=== PATIENT | female | born 1955 | race African-American/Black ===

== ENCOUNTER 2022-10-07 04:12 | Emergency (ER) | payer OTHER ==
[2022-10-07] MEDS ORDERED: Furosemide 40 MG/4 ML VIAL ONE (05:00)
[2022-10-07 05:12] LABS: #Basophils 0.1 thou/uL (0.0-0.2); #Eosinphils 0.4 thou/uL (0.0-0.7); #Lymphocytes 3.3 thou/uL (1.20-3.40); #Monocytes 0.8 thou/uL (0.11-0.59); #Neutrophils 8.4 thou/uL (1.40-6.50); %Basophils 1.1 % (0.0-1.0); %Eosinophils 3.3 % (0.0-10.0); %Lymphocytes 25.1 % (21.0-51.0); %Monocytes 5.8 % (0.0-10.0); %Neutrophils 64.7 % (42.0-75.0); Hematocrit 26.6 % (36.0-47.0); Hemoglobin 8.7 g/dL (12.0-16.0); Mean Corpuscular HGB CONC 32.6 g/dL (32.0-36.0); Mean Corpuscular Hemoglobin 27.5 pg (27.0-31.0); Mean Corpuscular Volume 84.4 fl (78.0-98.0); Mean Platelet Volume 11.6 fL (7.4-10.4); Platelet Count 89 10x3/uL (130-400); RBC Distribution Width 18.4 % (11.5-14.5); Red Blood Cell (RBC) Count 3.16 mill/uL (4.20-5.40)
[2022-10-07 05:19] LABS: INR-International Normal Ratio 1.5; Prothrombin Time 18.7 sec (12.0-14.7)
[2022-10-07 05:22] LABS: D-Dimer Test 0.7 *mcg/mL (0.27-0.43)
[2022-10-07 05:32] LABS: ALT (SGPT) 15 U/L (8-55); AST (SGOT) 21 U/L (5-34); Albumin 2.8 g/dL (3.4-4.8); Alkaline Phosphatase 257 U/L (40-110); Anion Gap 15 mmol/L (10-20); BUN (Urea Nitrogen) 42 mg/dL (9.8-20.1); Bilirubin, Total 1.6 mg/dL (0.2-1.2); CK (CPK) 21 U/L (29-168); Calc. Creatinine Clearance 0 mL/min (70-130); Calcium 8.7 mg/dL (7.8-10.44); Carbon Dioxide 21 mmol/L (23-31); Chloride 108 mmol/L (98-107); Estimated GFR 22; Globulin 4.8 g/dL (2.4-3.5); Glucose 124 mg/dL (80-115); Magnesium 1.2 mg/dL (1.6-2.6); Protein, Total 7.6 g/dL (5.8-8.1); Sodium 140 mmol/L (136-145); Troponin I 0.023 ng/mL (< 0.028); Uric Acid 15.8 mg/dL (2.6-6.0)
[2022-10-07] MEDS ORDERED: Magnesium 2 GM/50 ML BAG (IN WATER) ONE (06:05)
[2022-10-07 06:19] LABS: Bilirubin Negative (Negative); Blood, Urine Negative (Negative); Clarity Clear (Clear); Glucose, Urine (Dipstick) Negative (Negative); Ketone, Urine Negative (Negative); Leukocyte Negative (Negative); Nitrite Negative (Negative); Protein, Urine (Dipstick) Negative (Neg-Trace); Specific Gravity, Urine 1.015 (1.005-1.030); Urobilinogen 0.2 mg/dL (Less than 2)
[2022-10-07 06:36] LABS: Bacteria/HPF Rare-Few HPF (None Seen); CAUTI Indications for Culture Dysuria,urgency,freq; RBC/HPF 0-3 HPF (0-3); WBC/HPF 0-3 HPF (0-3)
[2022-10-07 06:38] LABS: Urine Culture Reflex No No
== END 2022-10-07 08:29 | disposition short-term general hospital (02) ==
LOC: MADERS 04:12
DX: E11.22 Type 2 diabetes mellitus with diabetic chronic kidney disease (principal); I12.9 Hypertensive chronic kidney disease with stage 1 through stage 4 chronic kidney disease, or unspecified chronic kidney disease; N18.4 Chronic kidney disease, stage 4 (severe); K70.30 Alcoholic cirrhosis of liver without ascites; E79.0 Hyperuricemia without signs of inflammatory arthritis and tophaceous disease; R77.0 Abnormality of albumin; E83.42 Hypomagnesemia; K21.9 Gastro-esophageal reflux disease without esophagitis; F17.210 Nicotine dependence, cigarettes, uncomplicated; Z79.4 Long term (current) use of insulin; Z79.899 Other long term (current) drug therapy
CPT/HCPCS: 36415; 80053; 81001; 82140; 82550; 83605; 83735; 83880; 84484; 84550; 85025; 85379; 85610; 93005; 96365; 96375; J1940; J3475

== ENCOUNTER 2022-10-24 14:57 | Emergency (ER) | payer OTHER ==
[2022-10-24 16:03] LABS: INR-International Normal Ratio 1.5; Prothrombin Time 18.5 sec (12.0-14.7)
[2022-10-24 16:04] LABS: PTT 41.6 sec (22.9-36.1)
[2022-10-24 16:16] LABS: #Basophils 0.2 thou/uL (0.0-0.2); #Eosinphils 0.3 thou/uL (0.0-0.7); #Lymphocytes 3.7 thou/uL (1.20-3.40); #Monocytes 0.6 thou/uL (0.11-0.59); %Basophils 1.6 % (0.0-1.0); %Lymphocytes 33.9 % (21.0-51.0); %Monocytes 5.6 % (0.0-10.0); %Neutrophils 55.9 % (42.0-75.0); Hemoglobin 9.5 g/dL (12.0-16.0); Lipase 129 U/L (8-78); Magnesium 1.4 mg/dL (1.6-2.6); Mean Corpuscular HGB CONC 30.8 g/dL (32.0-36.0); Mean Corpuscular Hemoglobin 26.5 pg (27.0-31.0); Mean Platelet Volume 10.9 fL (7.4-10.4); Platelet Count 95 10x3/uL (130-400); RBC Distribution Width 18.3 % (11.5-14.5); Troponin I 0.038 ng/mL (< 0.028); White Blood Cell (WBC) Count 10.8 10x3/uL (4.8-10.8)
[2022-10-24 16:17] LABS: Hypochromia SLIGHT = 6-15 cells (100X) (0-5/hpf); Platelet Adequacy Comment Appears Decreased
[2022-10-24 16:31] LABS: ALT (SGPT) 19 U/L (8-55); AST (SGOT) 34 U/L (5-34); Albumin 2.8 g/dL (3.4-4.8); Alkaline Phosphatase 274 U/L (40-110); Anion Gap 14 mmol/L (10-20); BUN (Urea Nitrogen) 56 mg/dL (9.8-20.1); Bilirubin, Total 1.8 mg/dL (0.2-1.2); Calc. Creatinine Clearance 0 mL/min (70-130); Calcium 9.3 mg/dL (7.8-10.44); Carbon Dioxide 30 mmol/L (23-31); Chloride 104 mmol/L (98-107); Estimated GFR 17; Globulin 5.7 g/dL (2.4-3.5); Glucose 127 mg/dL (80-115); Potassium 3.9 mmol/L (3.5-5.1); Protein, Total 8.5 g/dL (5.8-8.1); Sodium 144 mmol/L (136-145)
[2022-10-24] MEDS ORDERED: Sodium Chloride 0.9% 1,000 ML ONE (17:10)
[2022-10-24 19:27] LABS: Bilirubin Negative (Negative); Blood, Urine Negative (Negative); Clarity Clear (Clear); Glucose, Urine (Dipstick) Negative (Negative); Ketone, Urine Negative (Negative); Leukocyte Negative (Negative); Nitrite Negative (Negative); Protein, Urine (Dipstick) Negative (Neg-Trace); Specific Gravity, Urine 1.015 (1.005-1.030); Urobilinogen 0.2 mg/dL (Less than 2)
[2022-10-24 19:29] LABS: Bacteria/HPF Rare-Few HPF (None Seen); CAUTI Indications for Culture Alt mental st,lethar; RBC/HPF 0-3 HPF (0-3); Squamous Epithelial 0-3 HPF (0-3); WBC/HPF 0-3 HPF (0-3)
[2022-10-24 19:30] LABS: Urine Culture Reflex No No
[2022-10-24 19:35] LABS: Amphetamine Not Detected (NotDetected); Barbiturates Screen Not Detected (NotDetected); Benzodiazepine Screen Not Detected (NotDetected); Cocaine Metabolite Screen Not Detected (NotDetected); Methadone Not Detected (NotDetected); Methamphetamine Not Detected (NotDetected); Opiate Screen Not Detected (NotDetected); Oxycodone Screen Not Detected (NotDetected); Phencyclidine (PCP) Not Detected (NotDetected); THC/Cannabinoid Screen Not Detected (NotDetected); Tricyclic Screen Not Detected (NotDetected)
[2022-10-24 22:27] LABS: Troponin I 0.043 ng/mL (< 0.028)
[2022-10-24] MEDS ORDERED: Aspirin 325 MG TAB ONE (22:59)
== END 2022-10-25 00:56 | disposition short-term general hospital (02) ==
LOC: MADERS 14:57
DX: R41.82 Altered mental status, unspecified (principal); N17.9 Acute kidney failure, unspecified; K74.60 Unspecified cirrhosis of liver; K21.9 Gastro-esophageal reflux disease without esophagitis; E11.9 Type 2 diabetes mellitus without complications; I10 Essential (primary) hypertension; F17.210 Nicotine dependence, cigarettes, uncomplicated; Z79.4 Long term (current) use of insulin; Z79.899 Other long term (current) drug therapy
CPT/HCPCS: 36416; 70450; 71045; 71250; 74177; 80053; 80306; 81001; 82140; 83605; 83690; 83735; 84484; 85025; 85610; 85730; 87040; 93005; 94760; 96360; 96361; 36415-59; J7050

== ENCOUNTER 2023-01-06 19:09 | Emergency (ER) | payer OTHER ==
[2023-01-06] MEDS ORDERED: Methocarbamol 500 MG TAB ONE (19:55)
[2023-01-06] MEDS ORDERED: HYDROcodone/Acetaminophen 5/325 mg Tablet ONE (20:51)
[2023-01-06] MEDS ORDERED: Diazepam 5 MG TAB ONE (22:00)
== END 2023-01-07 00:59 ==
LOC: MADERS 19:09
DX: M62.830 Muscle spasm of back (principal); E10.9 Type 1 diabetes mellitus without complications; I10 Essential (primary) hypertension; F17.210 Nicotine dependence, cigarettes, uncomplicated
CPT/HCPCS: 99284

== ENCOUNTER 2023-03-13 18:35 | Emergency (ER) | payer OTHER ==
[2023-03-13 19:55] LABS: #Basophils 0.2 thou/uL (0.0-0.2); #Eosinphils 0.2 thou/uL (0.0-0.7); #Monocytes 0.7 thou/uL (0.11-0.59); #Neutrophils 4.9 thou/uL (1.40-6.50); %Basophils 1.8 % (0.0-1.0); %Eosinophils 2.1 % (0.0-10.0); %Lymphocytes 33.1 % (21.0-51.0); %Monocytes 8.3 % (0.0-10.0); %Neutrophils 54.6 % (42.0-75.0); Hematocrit 25.7 % (36.0-47.0); Mean Corpuscular Hemoglobin 27.1 pg (27.0-31.0); Mean Corpuscular Volume 87.3 fl (78.0-98.0); Mean Platelet Volume 13.8 fL (7.4-10.4); Platelet Count 99 10x3/uL (130-400); RBC Distribution Width 17.5 % (11.5-14.5); Red Blood Cell (RBC) Count 2.95 mill/uL (4.20-5.40); White Blood Cell (WBC) Count 8.9 10x3/uL (4.8-10.8)
[2023-03-13 20:02] LABS: INR-International Normal Ratio 1.5
[2023-03-13 20:03] LABS: PTT 48.5 sec (22.9-36.1)
[2023-03-13 20:39] LABS: SARS-CoV-2 NAA Rapid Test Not Detected (NotDetected)
[2023-03-13] MEDS ORDERED: Lactulose 20 GM (30 mL) UDCUP PO SCH (20:45)
[2023-03-13 20:48] LABS: ALT (SGPT) 16 U/L (8-55); AST (SGOT) 29 U/L (5-34); Albumin 2.8 g/dL (3.4-4.8); Alkaline Phosphatase 236 U/L (40-110); Anion Gap 15 mmol/L (10-20); BUN (Urea Nitrogen) 63 mg/dL (9.8-20.1); Bilirubin, Total 1.6 mg/dL (0.2-1.2); Calc. Creatinine Clearance 0 mL/min (70-130); Calcium 8.5 mg/dL (7.8-10.44); Carbon Dioxide 19 mmol/L (23-31); Chloride 108 mmol/L (98-107); Estimated GFR 10; Globulin 4.2 g/dL (2.4-3.5); Glucose 99 mg/dL (80-115); Magnesium 1.9 mg/dL (1.6-2.6); Potassium 4.5 mmol/L (3.5-5.1); Sodium 137 mmol/L (136-145)
[2023-03-13] MEDS ORDERED: Sodium Chloride 0.9% 500 ML ONE (22:44)
[2023-03-14] MEDS ORDERED: Sodium Chloride 0.9% 1,000 ML ONE (01:23)
== END 2023-03-14 03:07 | disposition short-term general hospital (02) ==
LOC: MADERS 18:35
DX: K76.82 Hepatic encephalopathy (principal); N17.9 Acute kidney failure, unspecified; I45.81 Long QT syndrome; E11.9 Type 2 diabetes mellitus without complications; I10 Essential (primary) hypertension; K21.9 Gastro-esophageal reflux disease without esophagitis; J45.909 Unspecified asthma, uncomplicated; I82.409 Acute embolism and thrombosis of unspecified deep veins of unspecified lower extremity; F17.210 Nicotine dependence, cigarettes, uncomplicated; Z79.01 Long term (current) use of anticoagulants; Z79.4 Long term (current) use of insulin; Z79.899 Other long term (current) drug therapy
CPT/HCPCS: 70450; 80053; 82140; 83605; 83735; 84443; 85025; 85610; 85730; 87804; 93005; 94760; 96360; J7030; J7050; U0002

== ENCOUNTER 2023-07-05 15:27 | Emergency (ER) | payer MEDICARE ==
[2023-07-05 16:26] LABS: Anisocytosis SLIGHT = 6-15 cells (100X) (0-5/hpf); Hematocrit 29.8 % (36.0-47.0); Hemoglobin 8.7 g/dL (12.0-16.0); Hypochromia MODERATE=16-30 cells (100X) (0-5/hpf); Lymphocytes 9 % (21-51); MDiff Complete? YES; Manual Diff?? YES; Mean Corpuscular HGB CONC 29.2 g/dL (32.0-36.0); Mean Corpuscular Hemoglobin 27.7 pg (27.0-31.0); Mean Corpuscular Volume 94.7 fl (78.0-98.0); Mean Platelet Volume 7.6 fL (7.4-10.4); Metamyelocyte 1 % (0-0); Monocytes 1 % (0-10); Neutrophil 77 % (42-75); Platelet Adequacy Comment Appears Decreased; Platelet Count 73 10x3/uL (130-400); Polychromasia SLIGHT = 2-3 cells (100X) (0-2/hpf); RBC Distribution Width 18.6 % (11.5-14.5); Reactive Lymphocytes 12 % (0-10); Red Blood Cell (RBC) Count 3.15 mill/uL (4.20-5.40); Reflex for Review?? NO; Target Cells SLIGHT = 2-5 cells (100X) (0-1/hpf); White Blood Cell (WBC) Count 12.2 10x3/uL (4.8-10.8)
[2023-07-05 16:31] LABS: ALT (SGPT) 10 U/L (8-55); AST (SGOT) 27 U/L (5-34); Albumin 2.6 g/dL (3.4-4.8); Alkaline Phosphatase 248 U/L (40-110); Anion Gap 18 mmol/L (10-20); BUN (Urea Nitrogen) 38 mg/dL (9.8-20.1); Bilirubin, Total 2.6 mg/dL (0.2-1.2); Calc. Creatinine Clearance 0 mL/min (70-130); Calcium 7.6 mg/dL (7.8-10.44); Carbon Dioxide 24 mmol/L (23-31); Chloride 97 mmol/L (98-107); Estimated GFR 6; Globulin 4.5 g/dL (2.4-3.5); Glucose 238 mg/dL (80-115); Magnesium 1.8 mg/dL (1.6-2.6); Potassium 3.8 mmol/L (3.5-5.1); Protein, Total 7.1 g/dL (5.8-8.1); Sodium 135 mmol/L (136-145)
[2023-07-05] MEDS ORDERED: Calcium Carbonate 500 MG ChewTAB ONE (16:37)
== END 2023-07-05 17:22 ==
LOC: MADERS 15:27
DX: E83.51 Hypocalcemia (principal); R25.2 Cramp and spasm; E11.9 Type 2 diabetes mellitus without complications; I10 Essential (primary) hypertension; F17.210 Nicotine dependence, cigarettes, uncomplicated; Z79.899 Other long term (current) drug therapy
CPT/HCPCS: 36415; 80053; 83735; 85025; 93005

== ENCOUNTER 2023-08-22 07:53 | Emergency (ER) | payer MEDICARE ==
[2023-08-22 08:53] LABS: #Basophils 0.1 thou/uL (0.0-0.2); #Eosinphils 0.2 thou/uL (0.0-0.7); #Monocytes 0.5 thou/uL (0.11-0.59); #Neutrophils 4.1 thou/uL (1.40-6.50); %Basophils 1.9 % (0.0-1.0); %Eosinophils 2.6 % (0.0-10.0); %Lymphocytes 37.8 % (21.0-51.0); %Monocytes 6.1 % (0.0-10.0); %Neutrophils 51.6 % (42.0-75.0); Hematocrit 31.5 % (36.0-47.0); Hemoglobin 9.2 g/dL (12.0-16.0); Mean Corpuscular HGB CONC 29.2 g/dL (32.0-36.0); Mean Corpuscular Hemoglobin 26.9 pg (27.0-31.0); Mean Corpuscular Volume 92.2 fl (78.0-98.0); Mean Platelet Volume 9.8 fL (7.4-10.4); Platelet Count 52 10x3/uL (130-400); RBC Distribution Width 18.4 % (11.5-14.5); Red Blood Cell (RBC) Count 3.42 mill/uL (4.20-5.40); White Blood Cell (WBC) Count 7.9 10x3/uL (4.8-10.8)
[2023-08-22 09:08] LABS: Platelet Adequacy Comment Appears Decreased
[2023-08-22 09:10] LABS: Anion Gap 19 mmol/L (10-20); BUN (Urea Nitrogen) 48 mg/dL (9.8-20.1); Calc. Creatinine Clearance 0 mL/min (70-130); Calcium 7.1 mg/dL (7.8-10.44); Carbon Dioxide 24 mmol/L (23-31); Chloride 99 mmol/L (98-107); Estimated GFR 8; Glucose 131 mg/dL (80-115); Potassium 4.9 mmol/L (3.5-5.1); Sodium 137 mmol/L (136-145)
[2023-08-22 09:16] LABS: INR-International Normal Ratio 1.6; Prothrombin Time 19.2 sec (12.0-14.7)
[2023-08-22 09:17] LABS: PTT 44.1 sec (22.9-36.1)
[2023-08-22 09:18] LABS: Troponin I 0.018 ng/mL (< 0.028)
[2023-08-22] MEDS ORDERED: Calcium Chloride 1 GM/10 ML Abboject SYRINGE ONE (09:48)
[2023-08-22] MEDS ORDERED: Sodium Chloride 0.9% 100 ML ONE ×2 (09:49→13:36)
[2023-08-22 12:59] LABS: Bilirubin Negative (Negative); Blood, Urine Negative (Negative); Glucose, Urine (Dipstick) Negative (Negative); Ketone, Urine Negative (Negative); Leukocyte Small (Negative); Nitrite Negative (Negative); Protein, Urine (Dipstick) Negative (Neg-Trace); Specific Gravity, Urine 1.015 (1.005-1.030); pH, Urine 7.5 (5.0-9.0)
[2023-08-22 13:00] LABS: Clarity Hazy (Clear)
[2023-08-22 13:07] LABS: CAUTI Indications for Culture Pelvic or flank pain; RBC/HPF 0-3 HPF (0-3); Yeast-Budding Rare HPF (None Seen)
[2023-08-22 13:09] LABS: Bacteria/HPF 2+ HPF (None Seen); Urine Culture Reflex No No
[2023-08-22] MEDS ORDERED: Fluconazole 100 MG TAB ONE (13:36)
[2023-08-22] MEDS ORDERED: cefTRIAXone (ROCEPHIN) 1 GM VIAL ONE (13:36)
== END 2023-08-22 18:22 | disposition short-term general hospital (02) ==
LOC: MADERS 07:53
DX: E86.0 Dehydration (principal); E83.51 Hypocalcemia; E11.9 Type 2 diabetes mellitus without complications; I10 Essential (primary) hypertension; F17.210 Nicotine dependence, cigarettes, uncomplicated; Z79.4 Long term (current) use of insulin
CPT/HCPCS: 36415; 70450; 71045; 80048; 81001; 83880; 84484; 85610; 85730; 93005; 96365; 96375; J0696; J3490

== ENCOUNTER 2023-09-05 07:35 | Emergency (ER) | payer MEDICARE, MEDICAID ==
[2023-09-05 08:24] LABS: ALT (SGPT) 16 U/L (8-55); AST (SGOT) 39 U/L (5-34); Albumin 2.3 g/dL (3.4-4.8); Alkaline Phosphatase 308 U/L (40-110); Anion Gap 19 mmol/L (10-20); BUN (Urea Nitrogen) 50 mg/dL (9.8-20.1); Bilirubin, Total 1.9 mg/dL (0.2-1.2); Calc. Creatinine Clearance 0 mL/min (70-130); Calcium 8.2 mg/dL (7.8-10.44); Carbon Dioxide 23 mmol/L (23-31); Chloride 98 mmol/L (98-107); Estimated GFR 7; Globulin 4.8 g/dL (2.4-3.5); Glucose 169 mg/dL (80-115); Potassium 4.9 mmol/L (3.5-5.1); Protein, Total 7.1 g/dL (5.8-8.1); Sodium 135 mmol/L (136-145)
[2023-09-05 08:29] LABS: Hematocrit 30.6 % (36.0-47.0); Hemoglobin 9.1 g/dL (12.0-16.0); Mean Corpuscular HGB CONC 29.6 g/dL (32.0-36.0); Mean Corpuscular Hemoglobin 27.5 pg (27.0-31.0); Mean Corpuscular Volume 92.7 fl (78.0-98.0); Mean Platelet Volume 8.2 fL (7.4-10.4); Platelet Count 59 10x3/uL (130-400); RBC Distribution Width 18.8 % (11.5-14.5); White Blood Cell (WBC) Count 9.4 10x3/uL (4.8-10.8)
[2023-09-05 08:45] LABS: Band 2 % (5-11); Eosinophils 4 % (0-10); Lymphocytes 35 % (21-51); MDiff Complete? YES; Monocytes 2 % (0-10); Neutrophil 57 % (42-75)
[2023-09-05 08:46] LABS: Anisocytosis SLIGHT = 6-15 cells (100X) (0-5/hpf); Platelet Adequacy Comment Appears Decreased
== END 2023-09-05 10:21 ==
LOC: MADERS 07:35
DX: G93.40 Encephalopathy, unspecified (principal); K70.9 Alcoholic liver disease, unspecified; E11.22 Type 2 diabetes mellitus with diabetic chronic kidney disease; N18.6 End stage renal disease; I12.0 Hypertensive chronic kidney disease with stage 5 chronic kidney disease or end stage renal disease; E11.42 Type 2 diabetes mellitus with diabetic polyneuropathy; F17.210 Nicotine dependence, cigarettes, uncomplicated
CPT/HCPCS: 80053; 82140; 85025; 93005

== ENCOUNTER 2023-12-14 17:28 | Emergency (ER) | payer MEDICARE, MEDICAID ==
[2023-12-14 18:15] LABS: #Basophils 0.1 thou/uL (0.0-0.2); #Eosinophils 0.3 thou/uL (0.0-0.7); #Lymphocytes 1.7 thou/uL (1.20-3.40); #Monocytes 0.5 thou/uL (0.11-0.59); #Neutrophils 4.1 thou/uL (1.40-6.50); %Basophils 1.7 % (0.0-1.0); %Eosinophils 4.6 % (0.0-10.0); %Lymphocytes 25.9 % (21.0-51.0); %Monocytes 7.1 % (0.0-10.0); %Neutrophils 60.7 % (42.0-75.0); Anisocytosis SLIGHT = 6-15 cells (100X) (0-5/hpf); Hematocrit 22.9 % (36.0-47.0); Hemoglobin 6.9 g/dL (12.0-16.0); Hypochromia SLIGHT = 6-15 cells (100X) (0-5/hpf); MDiff Complete? YES; Mean Corpuscular HGB CONC 30.2 g/dL (32.0-36.0); Mean Corpuscular Hemoglobin 28.9 pg (27.0-31.0); Mean Corpuscular Volume 95.6 fl (78.0-98.0); Mean Platelet Volume 11.2 fL (7.4-10.4); Platelet Adequacy Comment Appears Decreased; Platelet Count 42 10x3/uL (130-400); RBC Distribution Width 23.5 % (11.5-14.5); Red Blood Cell (RBC) Count 2.39 mill/uL (4.20-5.40); Target Cells SLIGHT = 2-5 cells (100X) (0-1/hpf); White Blood Cell (WBC) Count 6.7 10x3/uL (4.8-10.8)
[2023-12-14 18:20] LABS: ALT (SGPT) 18 U/L (8-55); AST (SGOT) 36 U/L (5-34); Albumin 2.2 g/dL (3.4-4.8); Alkaline Phosphatase 218 U/L (40-110); Anion Gap 18 mmol/L (10-20); BUN (Urea Nitrogen) 16 mg/dL (9.8-20.1); Bilirubin, Total 2.2 mg/dL (0.2-1.2); Calc. Creatinine Clearance 0 mL/min (70-130); Calcium 8.1 mg/dL (7.8-10.44); Carbon Dioxide 25 mmol/L (23-31); Chloride 95 mmol/L (98-107); Estimated GFR 13; Globulin 4.6 g/dL (2.4-3.5); Glucose 315 mg/dL (80-115); Potassium 3.1 mmol/L (3.5-5.1); Protein, Total 6.8 g/dL (5.8-8.1); Sodium 135 mmol/L (136-145)
[2023-12-14 18:21] LABS: Troponin I 0.027 ng/mL (< 0.028)
[2023-12-14] MEDS ORDERED: Sodium Chloride 0.9% 250 ML 250 ML ONE (19:28)
[2023-12-14] MEDS ORDERED: HYDROcodone/Acetaminophen 5/325 mg Tablet ONE (19:42)
[2023-12-14] MEDS ORDERED: Cyclobenzaprine 10 MG TAB ONE (19:42)
== END 2023-12-15 03:46 ==
LOC: MADERS 17:28
DX: D64.9 Anemia, unspecified (principal); J44.9 Chronic obstructive pulmonary disease, unspecified; I13.11 Hypertensive heart and chronic kidney disease without heart failure, with stage 5 chronic kidney disease, or end stage renal disease; E11.22 Type 2 diabetes mellitus with diabetic chronic kidney disease; N18.6 End stage renal disease; Z99.2 Dependence on renal dialysis; Z87.891 Personal history of nicotine dependence; K21.9 Gastro-esophageal reflux disease without esophagitis; Z79.01 Long term (current) use of anticoagulants; Z86.718 Personal history of other venous thrombosis and embolism
CPT/HCPCS: 36430; 71045; 80053; 84484; 85025; 86850; 86900; 86901; 86920; 93005; 94760; J7050; P9016